=== PATIENT | male | born 1985 | race African-American/Black ===

== ENCOUNTER 2017-03-19 11:14 | Emergency (ER) | payer MEDICAID, OTHER ==
[~2017-03-19] VITALS: Ht 180.3 cm; Wt 109.0 kg
[2017-03-19 11:22] VITALS: BP 114/76
== END 2017-03-19 13:06 | disposition home or self-care (01) ==
LOC: ER 12:20
DX: K04.7 Periapical abscess without sinus (principal); S02.5XXB Fracture of tooth (traumatic), initial encounter for open fracture; F17.210 Nicotine dependence, cigarettes, uncomplicated; X58.XXXA Exposure to other specified factors, initial encounter; Y93.89 Activity, other specified; Y92.018 Other place in single-family (private) house as the place of occurrence of the external cause
CPT/HCPCS: 99283

== ENCOUNTER 2019-07-12 06:49 | Emergency (ER) | payer SELFPAY ==
[~2019-07-12] VITALS: Ht 180.3 cm; Wt 118.0 kg
[2019-07-12] MEDS ORDERED: KETOROLAC 60MG/2ML VIAL IM ONE (08:15)
[2019-07-12 08:24] VITALS: BP 131/76
== END 2019-07-12 08:40 | disposition home or self-care (01) ==
LOC: ER 06:49
DX: K04.7 Periapical abscess without sinus (principal); R68.84 Jaw pain; F17.210 Nicotine dependence, cigarettes, uncomplicated; F12.10 Cannabis abuse, uncomplicated
CPT/HCPCS: 96372; 99283; 99406; J1885